=== PATIENT | female | born 1980 | race Caucasian/White ===

== ENCOUNTER 2017-02-23 20:08 | Emergency (ER) | payer OTHER ==
[2017-02-23] MEDS ORDERED: NORMAL SALINE 1000 ML 1,000 ML IV ONE (21:33)
--- NOTE | 2017-02-23 21:34 | ER Document Report ---
ED GI/ - General Chief Complaint: Epigastric Pain Stated Complaint: CHEST PAIN Time Seen by Provider: 02/23/17 21:23 Notes: Patient is a 37-year-old female who comes emergency department for chief complaint of sharp pains in her upper abdomen with vomiting, she states she vomited multiple times and started to feel shaky and lightheaded. She comes by EMS. She was given IV fluids. She denies any abdominal surgeries in the past. She denies alcohol or smoking. She is breast-feeding, had a normal vaginal delivery 8 weeks ago. She denies any lower abdominal pain, flank pain, fever, hematemesis, had a normal bowel movement earlier today. TRAVEL OUTSIDE OF THE [place] IN LAST 30 DAYS: No - Related Data Allergies/Adverse Reactions: diphenhydramine [From Benadryl] Allergy (Verified 02/23/17 23:59) Sulfa (Sulfonamide Antibiotics) Allergy (Verified 02/23/17 23:59) Past Medical History - General Information source: Patient - Social History Smoking Status: Never Smoker Chew tobacco use (# tins/day): No Frequency of alcohol use: None Drug Abuse: None Lives with: Family Family History: Reviewed & Not Pertinent Patient has suicidal ideation: No Patient has homicidal ideation: No - Medical History Medical History: Negative Renal/ Medical History: Denies: Hx Peritoneal Dialysis Surgical Hx: Negative - Immunizations Hx Diphtheria, Pertussis, Tetanus Vaccination: Yes Review of Systems - Review of Systems Constitutional: No symptoms reported EENT: No symptoms reported Cardiovascular: No symptoms reported Respiratory: No symptoms reported Gastrointestinal: See HPI Genitourinary: No symptoms reported Female Genitourinary: No symptoms reported Musculoskeletal: No symptoms reported Skin: No symptoms reported Hematologic/Lymphatic: No symptoms reported Neurological/Psychological: No symptoms reported Physical Exam - Vital signs Vitals: Temp Pulse Resp BP Pulse Ox 97.4 F 72 18 117/69 100 02/23/17 20:31 02/23/17 20:31 02/23/17 20:31 02/23/17 20:31 02/23/17 20:31 Interpretation: Normal - General General appearance: Appears well, Alert In distress: None - HEENT Head: Normocephalic, Atraumatic Eyes: Normal Pupils: PERRL - Respiratory Respiratory status: No respiratory distress Chest status: Nontender Breath sounds: Normal Chest palpation: Normal - Cardiovascular Rhythm: Regular Heart sounds: Normal auscultation Murmur: No - Abdominal Inspection: Normal Distension: No distension Bowel sounds: Normal Tenderness: Tender - Mild generalized upper abdominal tenderness, mid and lower abdominal exam is completely unremarkable, no guarding or rigidity Organomegaly: No organomegaly - Back Back: Normal, Nontender - Extremities General upper extremity: Normal inspection, Nontender, Normal color, Normal ROM , Normal temperature General lower extremity: Normal inspection, Nontender, Normal color, Normal ROM , Normal temperature, Normal weight bearing. No: Dany's sign - Neurological Neuro grossly intact: Yes Cognition: Normal Orientation: AAOx4 Kailee Coma Scale Eye Opening: Spontaneous Kailee Coma Scale Verbal: Oriented Kaliee Coma Scale Motor: Obeys Commands Kailee Coma Scale Total: 15 Speech: Normal Motor strength normal: LUE, RUE, LLE, RLE Sensory: Normal - Psychological Associated symptoms: Normal affect, Normal mood - Skin Skin Temperature: Warm Skin Moisture: Dry Skin Color: Normal Course - Re-evaluation Re-evalutation: Patient does have a leukocytosis at 18.6. However on my evaluation patient is sitting up, well-appearing, relaxed, she states she already feels much better. She was given some IV fluids by EMS. Suspect leukocytosis reactive from vomiting. She declines pain or nausea medication. Chemistry is unremarkable, urine is unremarkable, hCG is negative. Ultrasound of the upper abdomen was performed because of her reported symptoms and some tenderness in the upper abdomen on examination, however this is normal. Lower abdomen and flank are completely unremarkable. On reexamination patient states she continues to feel fine. Suspect a gastric/GI source of her symptoms based on her workup and reported symptoms along with her examination. Given Pepcid and Carafate. She tolerated these and fluid without any difficulty. Discussed treatment, follow- up recommendations, and return precautions. Patient states satisfaction and agreement. - Vital Signs Vital signs: Temp Pulse Resp BP Pulse Ox 97.4 F 72 10 L 119/69 97 02/23/17 20:31 02/23/17 20:31 02/24/17 00:08 02/24/17 00:01 02/24/17 00:08 - Laboratory Result Diagrams: 02/23/17 21:31 02/23/17 22:00 Laboratory results interpreted by me: 02/23/17 02/23/17 21:31 22:00 WBC 18.6 H Seg Neutrophils % 82.0 H Lymphocytes % 12.4 L Absolute Neutrophils 15.2 H Total Bilirubin 1.4 H Discharge - Discharge Clinical Impression: Upper abdominal pain Vomiting Qualifiers: Vomiting type: unspecified Vomiting Intractability: non-intractable Nausea presence: unspecified Qualified Code(s): R11.10 - Vomiting, unspecified Condition: Stable Disposition: HOME, SELF-CARE Additional Instructions: Your workup today shows some dehydration but no concerning abnormalities on ultrasound or labs. Your symptoms, examination, and workup are most suggestive of gastritis, I recommend taking the famotidine and Carafate as prescribed, start with bland food and fluids, progress slowly. If symptoms continue I recommend a HIDA scan and close primary care follow-up, if symptoms worsen please return, especially if you develop increased pain, uncontrolled vomiting, vomiting blood, black stools, or any other concerning symptoms. Prescriptions: Famotidine [Pepcid 20 mg Tablet] 20 mg PO BID #20 tablet Sucralfate [Carafate 1 gm Tablet] 1 gm PO QID #20 tablet Forms: Return to Work
[2017-02-23 21:44] LABS: ABSOLUTE BASOPHILS # (AUTO) 0.1 10^3/uL (0.0-0.2); ABSOLUTE EOSINOPHILS # (AUTO) 0.1 10^3/uL (0.0-0.6); ABSOLUTE LYMPHOCYTES (AUTO) 2.3 10^3/uL (0.5-4.7); ABSOLUTE MONOCYTES (AUTO) 0.9 10^3/uL (0.1-1.4); ABSOLUTE NEUT (AUTO) 15.2 10^3/uL (1.7-8.2); BASOPHILS % (AUTO) 0.3 % (0-2); EOSINOPHILS % (AUTO) 0.3 % (0-6); HEMATOCRIT 42.1 % (36.0-47.0); HEMOGLOBIN 14.4 g/dL (12.0-15.5); HGB HCT DIFFERENCE 1.1; LYMPHOCYTES % (AUTO) 12.4 % (13-45); MEAN CORPUSCULAR HEMOGLOBIN 32.1 pg (27.0-33.4); MEAN CORPUSCULAR HGB CONC 34.1 g/dL (32.0-36.0); MEAN CORPUSCULAR VOLUME 94 fl (80-97); RED BLOOD COUNT 4.47 10^6/uL (3.72-5.28); RED CELL DISTRIBUTION WIDTH 12.5 % (11.5-14.0); WHITE BLOOD COUNT 18.6 10^3/uL (4.0-10.5)
[2017-02-23 22:39] LABS: ALANINE AMINOTRANSFERASE 18 U/L (9-52); ALBUMIN 4.1 g/dL (3.5-5.0); ALKALINE PHOSPHATASE 79 U/L (38-126); ANION GAP 10 (5-19); ASPARTATE AMINO TRANSFERASE 18 U/L (14-36); BILIRUBIN,DIRECT 0.3 mg/dL (0.0-0.4); BILIRUBIN,TOTAL 1.4 mg/dL (0.2-1.3); BLOOD UREA NITROGEN 17 mg/dL (7-20); CALCIUM 9.8 mg/dL (8.4-10.2); CARBON DIOXIDE 25 mmol/L (22-30); CHLORIDE 107 mmol/L (98-107); CREATININE RESULT 0.84 mg/dL (0.52-1.25); GLUCOSE 109 mg/dL (75-110); LIPASE 92.6 U/L (23-300); POTASSIUM 4.3 mmol/L (3.6-5.0); SODIUM 142.1 mmol/L (137-145); TOTAL PROTEIN 6.9 g/dL (6.3-8.2)
[2017-02-23 23:29] LABS: APPEARANCE,URINE SLIGHTLY-CLOUDY; BILIRUBIN,URINE NEGATIVE (NEGATIVE); GLUCOSE, URINE NEGATIVE (NEGATIVE); KETONES,URINE NEGATIVE (NEGATIVE); LEUKOCYTE ESTERASE,URINE NEGATIVE (NEGATIVE); NITRITE,URINE NEGATIVE (NEGATIVE); PROTEIN,URINE NEGATIVE (NEGATIVE); URINE SPECIFIC GRAVITY 1.026; UROBILINOGEN,URINE NEGATIVE mg/dL (<2.0)
--- NOTE | 2017-02-23 23:52 | RADIOLOGY REPORT (SQ) ---
EXAM DESCRIPTION: U/S ABDOMEN LIMITED W/O DOP COMPLETED DATE/TIME: 02/23/2017 11:41 pm REASON FOR STUDY: epigastric pain, vomiting COMPARISON: None. TECHNIQUE: Dynamic and static grayscale images acquired of the abdomen and recorded on PACS. Additio nal selected color Doppler and spectral images recorded. LIMITATIONS: None. FINDINGS: PANCREAS: No masses. Visualized pancreatic duct normal caliber. LIVER: No masses. Echotexture normal. LIVER VASCULATURE: Normal blood flow is identified in the portal vein. GALLBLADDER: No stones. Normal wall thickness. No pericholecystic fluid. ULTRASOUND-DETECTED ZHAO'S SIGN: Negative. INTRAHEPATIC DUCTS AND COMMON DUCT: CBD and intrahepatic ducts normal caliber. No filling defects. INFERIOR VENA CAVA: Normal flow. AORTA: No aneurysm. RIGHT KIDNEY: Normal size. Normal echogenicity. No solid or suspicious masses. No hydronephrosis. No calcifications. PERITONEAL AND RIGHT PLEURAL SPACE: No ascites or effusions. OTHER: No other significant findings. IMPRESSION: NORMAL RIGHT UPPER QUADRANT ULTRASOUND. TECHNICAL DOCUMENTATION: JOB ID: [id number] [employer]- All Rights Reserved
[2017-02-24] MEDS ORDERED: SUCRALFATE 1 GM TABLET PO ONE (00:03)
[2017-02-24] MEDS ORDERED: FAMOTIDINE 20 MG TABLET PO ONE (00:03)
[2017-02-24 00:08] VITALS: BP 119/69
--- NOTE | 2017-02-24 07:54 | EKG REPORT ---
SEVERITY:- NORMAL ECG - SINUS RHYTHM : Confirmed by: Jaime Yancey MD 24-Feb-2017 07:53:47
== END 2017-02-24 00:42 | disposition home or self-care (01) ==
LOC: ER 20:08
DX: R10.13 Epigastric pain (principal); R11.10 Vomiting, unspecified; R42 Dizziness and giddiness; D72.829 Elevated white blood cell count, unspecified; Z88.2 Allergy status to sulfonamides; Z88.8 Allergy status to other drugs, medicaments and biological substances
CPT/HCPCS: 93005; 99285; 96360; 36415; 83690; 84703; 85025; 80053; 81001; 76705; 93010; J7030